=== PATIENT | male | born 1990 ===

== ENCOUNTER 2016-10-09 17:48 | Emergency (ER) | payer OTHER ==
[2016-10-09 17:59] VITALS: BP 140/62; PULSE 92; RESP 18; TEMP 98.5; O2SAT 99
--- NOTE | 2016-10-09 18:28 | ED PDOC ---
HPI: CCC, URI, Sore Throat Time Seen by Provider: 10/09/16 18:26 Chief Complaint (Nursing): ENT Problem Chief Complaint (Provider): nosebleed History Per: Patient History/Exam Limitations: no limitations Current Symptoms Are (Timing): Gone Now Additional Complaint(s): Mark Palencia is a 26 year old male who presents to emergency department for an evaluation of a nosebleed lasting 2 hours associated with pain that had resolved prior to arrival. Denies any active bleeding or further medical complaints upon arrival. Patient states that he gets nosebleeds from time to time. He denies any trauma. PMD: none provided Past Medical History Reviewed: Historical Data, Nursing Documentation, Vital Signs Vital Signs: Last Vital Signs Temp 98.5 F 10/09/16 17:57 Pulse 92 H 10/09/16 17:57 Resp 18 10/09/16 17:57 BP 140/62 10/09/16 17:57 Pulse Ox 99 10/09/16 18:56 - Medical History PMH: No Chronic Diseases - Surgical History Surgical History: No Surg Hx - Family History Family History: States: No Known Family Hx - Living Arrangements Living Arrangements: With Family - Social History Current smoker - smoking cessation education provided: No Alcohol: Occasional Drugs: Denies - Allergies Allergies/Adverse Reactions: Allergies Allergy/AdvReac Type Severity Reaction Status Date / Time No Known Allergies Allergy Verified 10/09/16 17:56 Review of Systems ROS Statement: Except As Marked, All Systems Reviewed And Found Negative ENT: Positive for: Nose Discharge (epistaxis from left nares 2 hrs ago, now resolved), Other Respiratory: Negative for: Cough Gastrointestinal: Negative for: Nausea, Vomiting Neurological: Negative for: Headache, Dizziness Physical Exam - Reviewed Nursing Documentation Reviewed: Yes Vital Signs Reviewed: Yes - Physical Exam Appears: Positive for: Well, Non-toxic, No Acute Distress Head Exam: Positive for: ATRAUMATIC, NORMAL INSPECTION, NORMOCEPHALIC Skin: Positive for: Normal Color. Negative for: Rash Eye Exam: Positive for: EOMI, PERRL ENT: Positive for: Other (bilateral nares are patent, no active bleeding, no septal hematoma) Cardiovascular/Chest: Positive for: Regular Rate, Rhythm Respiratory: Positive for: Normal Breath Sounds Neurologic/Psych: Positive for: Alert, Oriented - ECG O2 Sat by Pulse Oximetry: 99 (RA) Pulse Ox Interpretation: Normal Medical Decision Making Medical Decision Making: Initial Impression: Epistaxis, now resolved No active bleeding noted upon arrival, patient is in no distress. Patient was instructed to apply direct pressure to nasal bridge if bleeding starts again. He was also instructed to use nasal saline spray to prevent drying of nasal membranes which can lead to epistaxis. Patient was referred to clinic and ear, nose and throat specialist on-call. Scribe Attestation: Documented by Doris Mason, acting as a scribe for Laura Rose PA-C. Provider Scribe Attestation: All medical record entries made by the Scribe were at my direction and personally dictated by me. I have reviewed the chart and agree that the record accurately reflects my personal performance of the history, physical exam, medical decision making, and the department course for this patient. I have also personally directed, reviewed, and agree with the discharge instructions and disposition. Disposition - Clinical Impression Clinical Impression: Epistaxis, recurrent - Patient ED Disposition Is Patient to be Admitted: No Counseled Patient/Family Regarding: Diagnosis, Need For Followup - Disposition Referrals: [facility] [Outside] Guerrero Yee MD [Staff Provider] - Disposition: Routine/Home Disposition Time: 18:27 Condition: STABLE Additional Instructions: Apply pressure to nasal bridge if bleeding starts again. Follow up with primary care doctor or ear, nose and throat specialist for any persistent symptoms. Instructions: Nosebleed (ED) Print Language: [email or web address]
== END 2016-10-09 19:13 | disposition home or self-care (01) ==
LOC: H.ER 17:48
DX: R04.0 Epistaxis (principal)